=== PATIENT | male | born 1955 | race Caucasian/White ===

== ENCOUNTER 2018-11-26 05:34 | Inpatient (IN) | payer OTHER ==
[~2018-11-26] VITALS: Ht 182.9 cm; Wt 104.7 kg
[2018-11-26 05:35] VITALS: BP 194/92
[2018-11-26] MEDS ORDERED: NOHOMEMEDICATIONS (05:42)
[2018-11-26 05:54] LABS: ABSOLUTE NEUTROPHILS 11.4 thou/uL (1.4-8.2); BASOPHILS 0.8 % (0.0-2.0); EOSINOPHILS 2.1 % (0.0-3.0); HEMATOCRIT 47.1 % (42.0-52.0); HEMOGLOBIN 15.9 gm/dL (14.0-18.0); LYMPHOCYTES 8.8 % (24.0-44.0); MCH 30.1 pg (26.0-34.0); MCHC 33.7 g/dL (28.0-37.0); MCV 89.2 fL (80.0-100.0); MONOCYTES 6.1 % (1.0-8.0); PLATELET COUNT 253 thou/uL (150-400); POLYS 82.2 % (36.0-66.0); RBC 5.28 mil/uL (4.50-6.00); RDW 13.6 % (10.5-14.5); WBC 13.9 thou/uL (4.0-11.0)
[2018-11-26 05:55] LABS: BE(vivo) -1.8 mmol/L (-2 to +3); HCO3 24.2 mmol/L (22.0-26.0); PCO2 VENOUS 45.3 mmHg (41.0-51.0)
[2018-11-26 05:57] LABS: ANION GAP 11 mmol/L (7-16); BUN 17 mg/dL (7-18); CALCIUM 8.6 mg/dL (8.5-10.1); CHLORIDE 102 mmol/L (98-107); CO2 24 mmol/L (21-32); CREATININE 1.3 mg/dL (0.7-1.3); GLUCOSE 122 mg/dL (74-106); POTASSIUM 3.7 mmol/L (3.5-5.1); SODIUM 137 mmol/L (136-145)
[2018-11-26 06:07] LABS: ALBUMIN 3.5 g/dL (3.4-5.0); SGOT 19 U/L (15-37); SGPT 33 U/L (30-65); TOTAL BILIRUBIN 0.7 mg/dL (<0.1-1.0); TOTAL PROTEIN 7.4 g/dL (6.4-8.2); TROPONIN-I <0.06 ng/mL (<0.06)
[2018-11-26 07:38] VITALS: BP 158/75
--- NOTE | 2018-11-26 07:47 | EKG ---
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 : 1955 Requested By: Sonal Rubin Order Number: [id number] MD: Ellis Camacho Measurements Intervals [place] Rate: 115 P: 73 [place]: 147 QRS: 53 QRSD: 84 T: 45 QT: 333 QTc: 461 Interpretive Statements Sinus tachycardia Nonspecific ST segment abnormality Compared to ECG 08/19/1993 19:30:[address] segment abnormality is now present Electronically Signed On 11-26-2018 7:47:23 IMAGING ADMINISTRATOR by Ellis Camacho [email or web address] <ELECTRONICALLY SIGNED> By: Ellis Camacho MD, [facility] 11/26/18 0747 0556 0556 Ellis Camacho MD, [facility] /EPI
[2018-11-26 08:01] VITALS: BP 154/67
[2018-11-26 08:28] VITALS: BP 169/94
[2018-11-26 09:38] LABS: BE(vivo) -2.3 mmol/L (-2 to +3); HCO3 22.2 mmol/L (22.0-26.0); PCO2 37.5 mmHg (35.0-45.0); PO2 66.3 mmHg (80.0-100.0); sO2 93.1 % (92.0-98.0)
[2018-11-26 19:45] VITALS: BP 166/66
[2018-11-26 21:30] VITALS: BP 166/66
[2018-11-27 04:24] LABS: HEMOGLOBIN 15.1 gm/dL (14.0-18.0); LYMPHOCYTES 3.5 % (24.0-44.0); MCH 29.3 pg (26.0-34.0); MCHC 32.1 g/dL (28.0-37.0); MCV 91.3 fL (80.0-100.0); MONOCYTES 3.2 % (1.0-8.0); PLATELET COUNT 244 thou/uL (150-400); POLYS 93.3 % (36.0-66.0); RBC 5.15 mil/uL (4.50-6.00); RDW 13.7 % (10.5-14.5)
[2018-11-27 04:37] LABS: CALCIUM 8.8 mg/dL (8.5-10.1); CREATININE 1.5 mg/dL (0.7-1.3); MAGNESIUM 1.6 mg/dL (1.8-2.4); POTASSIUM 4.1 mmol/L (3.5-5.1); TROPONIN-I 0.14 ng/mL (<0.06)
[2018-11-27 04:45] VITALS: BP 133/58
--- NOTE | 2018-11-27 06:37 | NUR ---
PT RESTING ON AND OFF IN ROOM, ASKED FOR NICOTINE PATCH AND THEN REFUSED STATING IT GIVES HIM A RASH, VSS, SR IN THE 80'S, NO C/O PAIN, WILL CON'T TO MONITOR PER PPOC.
[2018-11-27 08:22] VITALS: BP 144/68
--- NOTE | 2018-11-27 10:09 | 2DMMODE ---
[facility] [place] [address] 2 D/M-MODE ECHOCARDIOGRAM Name: GRACIE ESTES Room #: 207-P ADM IN M.R.#: [id number] Admission: 11/26/18 Attend Phys: Mathieu Mcfadden MD Discharge: Date of : 55 Date of Service: 11/27/18 1008 Report #: [id number] THIS REPORT FOR: //name// APPROVED REPORT Study performed: 11/27/2018 09:16:49 EXAM: Comprehensive 2D, Doppler, and color-flow Echocardiogram Patient Location: Bedside Room #: 207 Status: routine BSA: 2.22 HR: 93 bpm BP: 133/58 mmHg Rhythm: NSR Other Information Study Quality: Technically Difficult Technically limited study due to body habitus, lung disease. Indications COPD Dyspnea Hypertension/HDD 2D Dimensions IVC: 16.00 mm Aortic Valve AoV Peak Yrn.: 1.14 m/s AO Peak Gr.: 5.17 mmHg LVOT Max P.91 mmHg LVOT Max V: 1.11 m/s Mitral Valve E/A Ratio: 0.8 MV Decel. Time: 327.68 ms MV E Max Yrn.: 1.20 m/s MV A Yrn.: 1.42 m/s MV PHT: 95.03 ms IVRT: 117.65 ms Pulmonary Valve PV Peak Yrn.: 0.92 m/s PV Peak Gr.: 3.40 mmHg [facility] [address] [place] [address] 2 D/M-MODE ECHOCARDIOGRAM Name: GRACIE ESTES Room #: 207-P ADM IN M.R.#: [id number] Admission: 11/26/18 Attend Phys: Mathieu Mcfadden MD Discharge: Date of : 55 Date of Service: 11/27/18 1008 Report #: [id number] Left Ventricle The left ventricle is normal size. There is normal LV segmental wall motion. Mild concentric left ventricular hypertrophy. The left ventricular systolic function is normal. The left ventricular ejection fraction is within the normal range. LVEF is 55-60%. Grade I - abnormal relaxation pattern. Right Ventricle The right ventricle is normal size. Right ventricular systolic function is grossly normal. Atria The left atrium size is normal. The right atrium size is normal. Aortic Valve The aortic valve is not well visualized. No aortic regurgitation is present. There is no aortic valvular stenosis. Mitral Valve The mitral valve is normal in structure. There is no mitral valve regurgitation noted. No evidence of mitral valve stenosis. Tricuspid Valve Tricuspid valve is not well visualized. There is no tricuspid valve regurgitation noted. Pulmonic Valve Pulmonic valve is not well visualized. There is no pulmonic valvular regurgitation. Great Vessels The aortic root is normal in size. IVC is normal in size and collapses >50% with inspiration. Pericardium There is no pericardial effusion. <Conclusion> The left ventricular systolic function is normal. Mild concentric left ventricular hypertrophy. There is normal LV segmental wall motion. LVEF is 55-60%. Mild diastolic dysfunction The aortic valve is not well visualized. No aortic valvular stenosis. The mitral valve is normal in structure. No mitral valve [facility] [address] [place] [address] 2 D/M-MODE ECHOCARDIOGRAM Name: GRACIE ESTES Room #: 207-P ADM IN .R.#: [id number] Admission: 11/26/18 Attend Phys: Mathieu Mcfadden MD Discharge: Date of : 55 Date of Service: 11/27/181007 Report #: [id number] regurgitation Pulmonary artery pressure could not be reliably ascertained There is no pericardial effusion. <ELECTRONICALLY SIGNED> By: Ellis Camacho MD, FACC 11/27/181007 07 07 Ellis Camacho MD, FACC /INF
[2018-11-27 12:02] VITALS: BP 176/101
--- NOTE | 2018-11-27 13:58 | EKG ---
[address] [place] [address] ELECTROCARDIOGRAM REPORT Name: GRACIE ESTES Room #: 207-P ADM IN M.R.#: [id number] Admission: 11/26/18 Attend Phys: Mathieu Mcfadden MD Discharge: Date of : 55 Report #: [id number] THIS REPORT FOR: //name// [facility] Test Date: 2018-11-27 Test Time: 10:14:11 Pat Name: GRACIE ESETS Department: Room: 207 P Gender: M Tectonophysicist: Miquel REIS : 1955 Requested By: Dee Gomez Order Number: [id number] MD: Luan Murphy Measurements Intervals [place] Rate: 79 P: 73 FL: 144 QRS: 67 QRSD: 73 T: 147 QT: 355 QTc: 407 Interpretive Statements Sinus rhythm Consider right atrial enlargement Abnormal R-wave progression, early transition Nonspecific T abnormalities, lateral leads Compared to ECG 11/26/2018 05:56:12 T-wave abnormality now present Sinus tachycardia no longer present ST (T wave) deviation no longer present Electronically Signed On 11-27-2018 13:58:02 HEALTH INFORMATION MANAGERS by Luan Murphy [email or web address] <ELECTRONICALLY SIGNED> By: Luan Murphy MD 11/27/18 1358 1014 1014 Luan Murphy MD /EPI
[2018-11-27 15:28] VITALS: BP 153/73
[2018-11-27 19:11] LABS: URINE BILIRUBIN NEGATIVE (Negative); URINE BLOOD NEGATIVE (Negative); URINE CLARITY CLEAR; URINE COLOR YELLOW; URINE GLUCOSE-RANDOM* NEGATIVE (Negative); URINE KETONES NEGATIVE (Negative); URINE LEUKOCYTES-REFLEX NEGATIVE (Negative); URINE NITRITE-REFLEX NEGATIVE (Negative); URINE PROTEIN (DIPSTICK) NEGATIVE (Negative); URINE SPECIFIC GRAVITY 1.025 (1.005-1.035); URINE UROBILINOGEN 0.2 E.U./dl (0.2-1.0)
[2018-11-27 20:15] VITALS: BP 156/61
[2018-11-28 00:50] VITALS: BP 158/78
[2018-11-28 04:14] LABS: ALBUMIN 2.8 g/dL (3.4-5.0); ANION GAP 13 mmol/L (7-16); BUN 21 mg/dL (7-18); CALCIUM 8.7 mg/dL (8.5-10.1); CHLORIDE 107 mmol/L (98-107); CHOLESTEROL 184 mg/dL (<200); CO2 23 mmol/L (21-32); CREATININE 1.2 mg/dL (0.7-1.3); GLUCOSE 131 mg/dL (74-106); HDL CHOLESTEROL 60 mg/dL (>40); LDL CHOLESTEROL 111 mg/dL (<100); PHOSPHORUS 3.2 mg/dL (2.5-4.9); POTASSIUM 4.3 mmol/L (3.5-5.1); SODIUM 143 mmol/L (136-145); TC:HDL 3.1 Ratio (Not establshd); TRIGLYCERIDE 67 mg/dL (<150); TROPONIN-I 0.07 ng/mL (<0.06); VLDL 13 mg/dL (<40)
[2018-11-28 04:15] LABS: SERUM ASSESSMENT Clear
[2018-11-28 04:45] VITALS: BP 156/66
--- NOTE | 2018-11-28 05:49 | NUR ---
ASSUME CARE 1900. PT/VITALS STABLE. INTERMITTENT HEADACHE NOTED. UP AD TRUMAN. ASSESSMET CHARTED. PROGRESSING WELL WITH POC. PLAN IS NPO FROM MIDNIGHT FOR STRESS TEST TODAY. WILL CONTINUE TO MONITOR AND FOLLOW WITH POC
[2018-11-28 08:34] VITALS: BP 186/73
--- NOTE | 2018-11-28 15:57 | NUR ---
ASSESSMENT CHARTED - MEDS PER JAN - NO CO'S OF NAUSEA RUBA DIET AND FLUIDS. GIVEN TYLENOL FOR CO'S OF HEADACHE WITH RELIEF. PT HAD NUC STRESS TEST COMPLETED THIS AM - UP AD TRUMAN IN ROOM TO THE BATHROOM. PT HAS BEEN RESTING MOST OF THE NOHEMY- ANYTIME IN ROOM PATIENT IS WANTING STAFF TO LEAVE SO THAT HE CAN SLEEP. DOES NOT LIKE TO HAVE HIS SLEEP INTERUPTED - SEEN BY DR BLOOM THIS AFTERNOON. IV FLUIDS D/C'D ORDERED. LOSARTAN STARTED ORDERED. NO CO'S AT THE PRESENT TIME.
[2018-11-28 17:03] VITALS: BP 179/74
[2018-11-28 21:21] VITALS: BP 162/86
[2018-11-28 23:51] VITALS: BP 146/72
[2018-11-29 04:27] VITALS: BP 158/86
--- NOTE | 2018-11-29 04:32 | NUR ---
ASSUMED OT CARE AT 1900. PT WAS VERY AGITATED AT THE START OF SHIFT BECAUSE HE COULD NOT GET A CAN OF COLA DUE TO HIS DIETARY RESTRICTIONS (HEART HEALTHY DIET). HE WAS YELLING AT ALL THE STAFF MEMBERS THAT TRIED TO TALK TO HIM. PT FINALLY CALMED DOWN AFTER HE WAS GIVEN A CAN OF PYRAMID [place] SODA. HIS BP WAS ELEVATED; 179/91 AT THE BEGINING OF THE SHIFT, PRN HYDRALIZINE WAS GIVEN AND IT BEGAN TRENDING DOWN. SYSTOLIC BP THIS AM WAS IN THE 150s. PT REQUESTED FOR A SLEEPING AID, 10MG MELATONIN WAS ORDERED AND ADMINISTERED. HE ALSO COMPLAINED OF SOME HEADACHE TO WHICH TYLENOL WAS EFFECTIVE IN ITS RESOLUTION. PT AND HIS MENTIONED THAT HE HAS HX OF SEIZURES AND ANXIETY/DEPRESSION. THEY FURTHER STATED THAT THE SEIZURE OFTEN "STARTS WITH A COUGH AND HIS WHOLE BODY GETS TENSE AND HE STARTS TO TREMOR." PT STATED HE HAD A SEIZURE EPISODE EARLIER IN THE DAY. DB LEPE NOTIFIED AND SEIZURE PRECAUTIONS WERE ORDERED AND IMPLEMENTED TONIGHT. PT WAS STARTED ON 500MG OF KEPRA PER DB LEPE'S ORDERS. PT STATED THAT HE USES KEPRA FOR HIS SEIZURES BUT HE HADN'T USED THIS MEDICINE IN OVER ONE YEAR. ALSO, HYDROXYZINE 25MG PRN WAS ORDERED FOR ANXIETY. I OBSERVED THAT HE GETS SOA WHEN HE SEEMS ANXIOUS. I PUT PT ON 2L O2 NC FOR COMFORT PRN. PT ALSO STATED THAT THE LAST TIME HE SAW HIS DR. SHE TOLD HIM THAT HE SHOULD STOP TAKING ATORVASTATIN AND SHOULD START SIMVASTATIN INSTEAD. OTHERWISE, PT HAS BEEN STABLE WITH NO MORE ANGER OUTBURSTS. HE RESTED WELL OVER NIGHT, WILL CONTINUE TO MONITOR PER POC.
[2018-11-29 08:00] VITALS: BP 180/76
[2018-11-29] MEDS ORDERED: CEFUROXIME500 MG PO (09:44)
[2018-11-29] MEDS ORDERED: KEPPRA 500 MG500 M1 PO (09:45)
[2018-11-29] MEDS ORDERED: ASPIR 8181 MG PO (09:45)
[2018-11-29] MEDS ORDERED: COZAAR100 MG PO (09:45)
[2018-11-29] MEDS ORDERED: IPRAT-ALBUT 0.5-3 ML INH (09:45)
[2018-11-29] MEDS ORDERED: METOPROLOL SUCC50 MG PO (09:45)
[2018-11-29] MEDS ORDERED: PREDNISONE 20 M20 MG PO (09:47)
[2018-11-29] MEDS ORDERED: ATORVASTATIN CA40 MG PO (09:50)
[2018-11-29 10:09] VITALS: BP 180/76
[2018-11-29 11:48] VITALS: BP 180/76
--- NOTE | 2018-11-29 11:50 | NUR ---
Pt dcing home today. No insurance and [facility]. Pt provided the saftey net packet, scripts for 30 days vouchered for a total of $94.52 and a nebulizer was vouchered and issued per provider plus. Pt encouraged to make an appointment with the [facility] as soon as possible or with one of the community clinics for followup care. Nursing updated. No other needs noted.
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
== END 2018-11-29 12:10 | disposition home or self-care (01) | DRG 871 ==
LOC: ER 05:34 → EROBS 07:09 → 2N 07:09
PROVIDERS: Emergency Medicine; Hospitalist; Student in an Organized Health Care Education/Training Program; ADMIT Internal Medicine
DX: A41.9 Sepsis, unspecified organism (principal); J96.01 Acute respiratory failure with hypoxia; J18.9 Pneumonia, unspecified organism; J44.1 Chronic obstructive pulmonary disease with (acute) exacerbation; N17.9 Acute kidney failure, unspecified; J44.0 Chronic obstructive pulmonary disease with (acute) lower respiratory infection; I16.0 Hypertensive urgency; I10 Essential (primary) hypertension; R00.0 Tachycardia, unspecified; T69.9XXA Effect of reduced temperature, unspecified, initial encounter; G40.909 Epilepsy, unspecified, not intractable, without status epilepticus; E78.5 Hyperlipidemia, unspecified; I65.29 Occlusion and stenosis of unspecified carotid artery; F17.210 Nicotine dependence, cigarettes, uncomplicated; F12.90 Cannabis use, unspecified, uncomplicated; Z71.6 Tobacco abuse counseling; Z79.82 Long term (current) use of aspirin; Z79.899 Other long term (current) drug therapy; Z91.14 Patient's other noncompliance with medication regimen
CPT/HCPCS: 10081

== ENCOUNTER 2019-04-14 16:52 | Inpatient (IN) | payer OTHER ==
[~2019-04-14] VITALS: Ht 180.3 cm; Wt 101.5 kg
[~2019-04-14 16:52] MED LIST: ASPIR 8181 MG PO; ATORVASTATIN CA40 MG PO; CEFUROXIME500 MG PO; COZAAR100 MG PO; IPRAT-ALBUT 0.5-3 ML INH; KEPPRA 500 MG500 M1 PO; METOPROLOL SUCC50 MG PO; NOHOMEMEDICATIONS; PREDNISONE 20 M20 MG PO
[2019-04-14 16:54] VITALS: BP 182/83
[2019-04-14 17:28] LABS: ABSOLUTE NEUTROPHILS 14.3 thou/uL (1.4-8.2); BASOPHILS 0.4 % (0.0-2.0); EOSINOPHILS 0.3 % (0.0-3.0); HEMATOCRIT 43.5 % (42.0-52.0); HEMOGLOBIN 14.7 gm/dL (14.0-18.0); LYMPHOCYTES 6.5 % (24.0-44.0); MCH 29.8 pg (26.0-34.0); MCHC 33.9 g/dL (28.0-37.0); MCV 87.9 fL (80.0-100.0); MONOCYTES 8.4 % (1.0-8.0); PLATELET COUNT 223 thou/uL (150-400); POLYS 84.4 % (36.0-66.0); RBC 4.95 mil/uL (4.50-6.00); RDW 13.2 % (10.5-14.5)
[2019-04-14 17:38] LABS: ANION GAP 10 mmol/L (7-16); BUN 15 mg/dL (7-18); CALCIUM 8.9 mg/dL (8.5-10.1); CHLORIDE 99 mmol/L (98-107); CO2 27 mmol/L (21-32); CREATININE 1.4 mg/dL (0.7-1.3); GLUCOSE 99 mg/dL (74-106); SODIUM 136 mmol/L (136-145)
[2019-04-14 17:52] LABS: MAGNESIUM 1.5 mg/dL (1.8-2.4); SGOT 16 U/L (15-37); SGPT 20 U/L (30-65); TOTAL BILIRUBIN 0.8 mg/dL (<0.1-1.0); TOTAL PROTEIN 7.1 g/dL (6.4-8.2); TROPONIN-I <0.06 ng/mL (<0.06)
[2019-04-14 21:27] LABS: URINE BILIRUBIN NEGATIVE (Negative); URINE BLOOD NEGATIVE (Negative); URINE CLARITY CLEAR; URINE COLOR YELLOW; URINE GLUCOSE-RANDOM* NEGATIVE (Negative); URINE KETONES NEGATIVE (Negative); URINE LEUKOCYTES-REFLEX NEGATIVE (Negative); URINE NITRITE-REFLEX NEGATIVE (Negative); URINE PROTEIN (DIPSTICK) TRACE (Negative); URINE SPECIFIC GRAVITY <= 1.005 (1.005-1.035)
[2019-04-14 21:30] VITALS: BP 163/112
[2019-04-14 22:20] VITALS: BP 124/66
[2019-04-14] MEDS ORDERED: ZOCOR20 MG PO (23:13)
[2019-04-14 23:52] VITALS: BP 141/72
[2019-04-15 04:00] VITALS: BP 144/66
--- NOTE | 2019-04-15 06:28 | NUR ---
PT ARRIVED FROM ER VIA CART, PLACED IN ROOM 363. ADMISSION ASSESSMENTS COMPLETED. SEE CHARTING. PT MAKING PROGRESS TOWARDS GOALS. TYLENOL, MORPHINE AND (GENERIC) EXCEDRIN GIVEN FOR HEADACHE. MODERATE RELIEF NOTED WITH MORPHINE AND TYLENOL. PT ASLEEP SHORTLY AFTER GIVING EXCEDRIN. LUNGS DIMINISHED, FAINTLY COARSE MIKE. REPORTS COUGH NON-PRODUCTIVE "I JUST SWALLOW IT."
[2019-04-15 06:56] LABS: HEMATOCRIT 38.5 % (42.0-52.0); HEMOGLOBIN 12.9 gm/dL (14.0-18.0); MCH 29.7 pg (26.0-34.0); MCHC 33.5 g/dL (28.0-37.0); MCV 88.6 fL (80.0-100.0); RBC 4.34 mil/uL (4.50-6.00); RDW 13.1 % (10.5-14.5); WBC 13.3 thou/uL (4.0-11.0)
[2019-04-15 07:04] LABS: CALCIUM 8.4 mg/dL (8.5-10.1); CREATININE 1.4 mg/dL (0.7-1.3); MAGNESIUM 2.1 mg/dL (1.8-2.4); POTASSIUM 3.4 mmol/L (3.5-5.1)
[2019-04-15 07:30] VITALS: BP 133/49
--- NOTE | 2019-04-15 08:47 | EKG ---
[address] [address] ELECTROCARDIOGRAM REPORT Name: GRACIE ESTES Room #: 363-P ADM IN M.R.#: [id number] ������������������ Admission: 04/14/19 ������������������ Attend Phys: Tung Haile MD Discharge: ������������������ Date of : 55 Report #: [id number] ����������������������������������������������������������������� [id number] THIS REPORT FOR: //name// [facility] ED Test Date: 2019-04-14 Test Time: 17:58:49 Pat Name: GRACIE ESTES Department: Room: 363 Gender: M Propagation Worker: hina : 1955 Requested By: Mars Madrid Order Number: [id number] MD: Luan Murphy Measurements Intervals [place] Rate: 120 P: 75 [place]: 147 QRS: 48 QRSD: 80 T: 67 QT: 315 QTc: 445 Interpretive Statements Sinus tachycardia Consider right atrial enlargement Compared to ECG 11/27/2018 10:14:11 Sinus rhythm no longer present T-wave abnormality no longer present Electronically Signed On 04-15-2019 8:47:38 CDT by Luan Murphy [email or web address] ��������������������������������������������� <ELECTRONICALLY SIGNED> ���������������������������������������� By: Luan Murphy MD ��������������������������������������������� 04/15/19 0847 1758 1758 Luan Murphy MD /[facility]
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
--- NOTE | 2019-04-15 13:38 | NUR ---
Assess due to pt with recent poor oral intake x 5 days. Admit with pneumonia. Pt states wasn't eating because not feeling well, but appetite is good now. Ate 100% of lunch. Stated wt may be down few pounds from usual of 220 lb. Low nutrition risk
[2019-04-15 20:24] VITALS: BP 131/53
[2019-04-16 00:47] VITALS: BP 156/63
--- NOTE | 2019-04-16 02:15 | NUR ---
At approx 0030 pt had call light on ,nurse was on the way to pt's room with sleep aid. Pt reported he had a coughing spell which triggered a seizure spell,not observed by jingle writer. Pt alert and oriented and not coughing at the particular moment only complained of pain allover moreso headache medicated with Morphine and verbalized relief. VS 156/63,98% RA,20,91,98.1. arrived to pt's room and explained that normally if he has a bad coughing spell he holds on his breathe and most likely can get a seizure if not able to breath. Melatonin administered at that time, on reassment pt resting soundly with no distress noted. at the bedside for the night. Seiuzure precautions in place,call light placed within reach. Will continue to monitor pt.
[2019-04-16 05:28] LABS: HEMATOCRIT 39.1 % (42.0-52.0); HEMOGLOBIN 12.9 gm/dL (14.0-18.0); MCH 29.5 pg (26.0-34.0); MCV 89.4 fL (80.0-100.0); RBC 4.38 mil/uL (4.50-6.00); RDW 13.4 % (10.5-14.5); WBC 8.1 thou/uL (4.0-11.0)
[2019-04-16 05:30] VITALS: BP 179/95
[2019-04-16 05:47] LABS: CALCIUM 8.2 mg/dL (8.5-10.1); CREATININE 1.2 mg/dL (0.7-1.3); POTASSIUM 3.6 mmol/L (3.5-5.1)
--- NOTE | 2019-04-16 05:47 | NUR ---
PT. called @0530 STATED HAD A BAD DREAM AND NEEDS A PSYC EVAL IN THE MORNING AND DECLINES HAVING A FEMALE PSYC DR. MOYA ASSESSED AND DOCUMENTED WILL CONTINUE TO MONITOR.
[2019-04-16 07:59] VITALS: BP 175/83
--- NOTE | 2019-04-16 15:49 | NUR ---
SW reviewed chart and spoke with nursing and attending physician. Psych consult ordered today per pt's request. Plan is for pt to discharge home when medically stable. Pt does not have active insurance coverage, as [facility]. LEVI is following to assist as needed with discharge planning.
[2019-04-16 16:09] VITALS: BP 145/61
--- NOTE | 2019-04-16 16:47 | NUR ---
ASSESSMENT DOCUMENTED. PT ALERT AND ORIENTED. HAD X1 EPISODE OF SEIZURE THAT LASTED FOR A MINUTE. DR. HAMMOND AWARE. NEW ORDERS RECEIVED. PRN NAUSEA AND PAIN MED GIVEN. AT THE BEDSIDE. WILL CONTINUE TO MONITOR.
[2019-04-16 19:59] VITALS: BP 155/86
--- NOTE | 2019-04-17 03:26 | NUR ---
SLEPT MOST OF SHIFT. UP WITH STANDBY ASSIST DUE TO SEIZURES YESTERDAY. GAIT STEADY. AT BEDSIDE. MAINTAIN SAFE ENVIRONMENT. WORKING ON GOALS AND PLAN OF CARE FOR NOC. PLANS FOR EEG AND MRI IN AM. PROGRESSING SLOWLY TOWARDS DISCHARGE GOALS. CONTINUE TO ASSES.
[2019-04-17 04:15] VITALS: BP 154/77
--- NOTE | 2019-04-17 07:41 | NUR ---
0550 PATIENT BECAME VERY ANGRY THIS AM AND SAID HE IS DROWNING IN HIS OWN FLUIDS. LUNG SOUNDS DECREASED AND COURSE IN BASES. O2 SAT 96% ON RA. UP PACING IN ROOM CUSSING AND YELLING. STATING WE DO NOT KNOW HOW HE FEELS. STATES HE HASNT SLEPT ALL NOC BUT RESTED WITH EYES CLOESED AND DID NOT COMPLAIN UNTIL THIS AM. STAYED WITH PATIENT WHY HE ANGERLY RANTED AND CUSSED FOR 40 MIN. CALMED DOWN NOW AND SLEEPING. REMAINS AT BEDSIDE AND WAS APOLOGETIC PAST PATIENTS RANT. CONTINUE TO ASSES CLOESLY. RT DID AM BREATHING TREATMENT.
[2019-04-17 08:13] VITALS: BP 132/68
[2019-04-17 08:15] LABS: HEMOGLOBIN 11.7 gm/dL (14.0-18.0); MCH 29.7 pg (26.0-34.0); MCHC 33.5 g/dL (28.0-37.0); MCV 88.6 fL (80.0-100.0); RBC 3.95 mil/uL (4.50-6.00); RDW 13.2 % (10.5-14.5); WBC 7.8 thou/uL (4.0-11.0)
[2019-04-17 08:28] LABS: ALBUMIN 2.4 g/dL (3.4-5.0); CALCIUM 8.1 mg/dL (8.5-10.1); CREATININE 1.3 mg/dL (0.7-1.3); MAGNESIUM 1.6 mg/dL (1.8-2.4); POTASSIUM 3.4 mmol/L (3.5-5.1); TOTAL BILIRUBIN 0.2 mg/dL (<0.1-1.0); TOTAL PROTEIN 5.8 g/dL (6.4-8.2)
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
[2019-04-17 19:20] VITALS: BP 168/73
--- NOTE | 2019-04-17 21:15 | NUR ---
1999 PATIENT UP PACING IN ROOM. STATES WE ARE TRYING TO KILL HIM. YELLING AND CUSSING. STATES THE BREATHING TREATMENTS DONT WORK. INFORMED NURSE WILL CALL DR FOR CHANGE IN MEDICATIONS. [address] RING NOTIFIED AND MEDICATIONS CHANGED TO MATCH PATIENTS REQUEST. NOW HERE. PATIENT STILL AGITATED AND ANGRY.
--- NOTE | 2019-04-17 21:31 | NUR ---
PATIENT ALERT AND ORIENTED AND ANGRY AT STAFF AND SPOUSE. SPOUSE AT BEDSIDE THROUGHOUT DAY AND IS A NURSE. ATTEMPTS TO EXPLAIN PLAN OF CARE ARE RESISTED BY PATIENT AND WILL CURSE AND DEGRADE THE STAFF AND DOCTORS INDICATING NO ONE IS LISTENING TO HIS CONCERNS. CONCERNS ARE EXPRESS TO CHARGE NURSE, ANCILLARY STAFF, CASE MANAGMENT AND PHYSICIAN. WILL CONTINUE TO MONITOR.
[2019-04-18 04:50] VITALS: BP 161/72
--- NOTE | 2019-04-18 05:21 | NUR ---
PATIENT RESTED QUIETLY REST OF SHIFT. PATIENT REMAINS ANXIOUS AND MEDICATION GIVEN. WORKING ON GOALS AND PLAN OF CARE FOR NOC. UP IN CHIU WITH STEADY GAIT. CALLED RT FOR TREATMENT BUT PATIENT ASLEEP WHEN RT ARRIVED. WILL CALL AGIAN IF PATIEN AWAKENS. CONTINUE TO ASSES CLOSELY.
[2019-04-18 06:18] LABS: HEMATOCRIT 37.2 % (42.0-52.0); HEMOGLOBIN 12.5 gm/dL (14.0-18.0); MCH 29.8 pg (26.0-34.0); MCHC 33.6 g/dL (28.0-37.0); MCV 88.8 fL (80.0-100.0); RBC 4.18 mil/uL (4.50-6.00); RDW 13.5 % (10.5-14.5); WBC 8.6 thou/uL (4.0-11.0)
[2019-04-18 06:28] LABS: CALCIUM 8.6 mg/dL (8.5-10.1); CREATININE 1.2 mg/dL (0.7-1.3); POTASSIUM 3.7 mmol/L (3.5-5.1)
[2019-04-18 08:41] LABS: TSH 2.577 uIU/mL (0.358-3.740)
[2019-04-18 08:50] VITALS: BP 165/69
--- NOTE | 2019-04-18 15:57 | NUR ---
SW reviewed chart and spoke with nursing and attending physician. Pulmonary consulted today. Pt is on IV steroids. SW is following to assist as needed with discharge planning.
--- NOTE | 2019-04-18 17:51 | NUR ---
Assumed pt care this am, pt is verbally abusive and very angry. Pt claimed to not being able to sleep due to his not being able to breath. Pt had mentioned that his health has declined more the longer he stays in the hispital. Pt would refuse getting medication on time, refuse assessments and treatments. Dr. Haile informed, medication was added consult with production controller done. POC followed, pt was asleep from most fo the afternoon. Refused to have a bed alarm on, will not call for assistance. is fully aware of the risk and rationale why nurses need to do this. requested that he be left alone since pt is very aggitated and hateful and would be the same towards her. All morning medications were given late. POC followed permitted.
[2019-04-18 19:32] VITALS: BP 177/90
--- NOTE | 2019-04-19 02:25 | NUR ---
resting quietly tonight. denies pain, he explained that he needs his medications to prevent him from acting unpleasant. to was able to ask appropriate questions and explain what he wants and needs to cooperate with care tonight. he took all of his medications. stated that he does feel better with the steriods that have been started.
[2019-04-19 03:08] VITALS: BP 139/73
--- NOTE | 2019-04-19 14:58 | NUR ---
SW reviewed chart and spoke with nursing and attending physician. Pt is slowly progressing towards goals for discharge. Pt remains on IV steroids. SW met with pt at bedside. Pt states he is hoping to discharge home over the weekend. SW asked if pt/ had any questions regarding info provided for behavioral health resources for their sons. Pt states they do not have any questions at this time. SW provided contact info. [employer] event representative to meet with pt this afternoon regarding Medicaid application/financial assistance. SW is following to assist as needed with discharge planning.
[2019-04-19 15:40] VITALS: BP 144/76
[2019-04-19 20:10] VITALS: BP 168/91
[2019-04-19 23:09] LABS: ADENOVIRUS Negative (Negative); INFLUENZA A Negative (Negative); INFLUENZA B Negative (Negative); METAPNEUMOVIRUS Negative (Negative); PARAINFLUENZA 1 Negative (Negative); PARAINFLUENZA 2 Negative (Negative); PARAINFLUENZA 3 Positive (Negative); RHINOVIRUS Negative (Negative); RSV A Negative (Negative); RSV B Negative (Negative)
--- NOTE | 2019-04-20 00:02 | NUR ---
NOTIFIED PROVIDER OF PARAINFLUENZA POSITIVE RESULT. NO FURTHER ORDERS AT THIS TIME.
--- NOTE | 2019-04-20 03:53 | NUR ---
cooperative with medications this shift. he has needed some redirecting when he gets stressed. his is staying at the bedside. his stated that he hydroxizine is helpful in controlling his anxiety. resting quietly tonight. he stated that he has been getting some rest this past two days. careplan reviewed.
[2019-04-20 04:45] VITALS: BP 181/101
[2019-04-20 06:00] VITALS: BP 160/98
[2019-04-20 10:20] VITALS: BP 159/79
[2019-04-20 12:00] VITALS: BP 158/86
[2019-04-20] MEDS ORDERED: IPRAT-ALBUT 0.5-3 ML INH (12:36)
[2019-04-20] MEDS ORDERED: PRAZOSIN HCL1 MG PO (12:36)
[2019-04-20] MEDS ORDERED: VISTARIL 25 MG25 M1 PO (12:37)
[2019-04-20] MEDS ORDERED: MUCINEX600 MG PO (12:37)
[2019-04-20] MEDS ORDERED: VENTOLIN HFA 1818 GM INH (12:38)
[2019-04-20] MEDS ORDERED: PREDNISONE 10 M10 MG PO (12:38)
[2019-04-20] MEDS ORDERED: CEFUROXIME500 MG PO (12:38)
--- NOTE | 2019-04-20 14:53 | NUR ---
ASSUMED CARE OF PT AT APPROX 0700. PT IS ALERT AND ORIENTED X4, MONITORED ON TELE AND ABLE TO MAINTAINS 02 SAT >90 ON RA. PT RESQUEST TO BE LEFT ALONE FOR NOW AND TO WAIT UNTIL LATER IN THE AM FOR MEDICATIONS AND VITALS. PT WAS COOPERATIVE WHEN ENTERED ROOM FOR MEDICATIONS AND VITALS. DENIES PAIN. ASSESSMENT CHARTED. RECEIEVED ORDER FOR DC OF PT. PT STATES HE FEELS LIKE ONE MORE DAY COULD BE BENEFICIAL TO HIM. CONTACTED DR AND DR AGREES TO ONE MORE DAY. PT ALSO REQUESTS TO BE ABLE TO WALK OUTSIDE SUPERVISED JUST FOR SOME FRESH AIR. DR IS OK LONG SUPERVISED. PT HAS BEEN UPDATED ON POC AND IS AGREEABLE. WILL CONTINUE TO MONITOR.
[2019-04-20 16:00] VITALS: BP 147/62
[2019-04-20 20:00] VITALS: BP 154/71
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
--- NOTE | 2019-04-20 22:27 | EEG ---
[facility] [place] [address] ELECTROENCEPHALOGRAM Name: GRACIE ESTES Room #: 363-P [facility] IN M.R.#: [id number] ������������������ Admission: 04/14/19 ������������������ Attend Phys: Tung Haile MD Discharge: ������������������ Date of : 55 Report #: [id number] ����������������������������������������������������������������� [id number] THIS REPORT FOR: //name// CC: FAM unknown Tung Haile DATE OF SERVICE: 04/17/2019 This patient is being evaluated for the possibility of seizure. EEG was done by placing the electrode by standard 10-20 system of electrode placement. Both referential and sequential montages were used for recording. Background activity in this patient's EEG is about 9-10 Hz and 30 microvolt. The patient became drowsy and that was associated with bilateral slowing and vertex sharp waves. Photic stimulation was unremarkable. Throughout the record, no active epileptiform activity was noticed. IMPRESSION: This patient's EEG is unremarkable. ���������������������������������������� <ELECTRONICALLY SIGNED> ���������������������������������������� By: Rikki Catherine MD ��������������������������������������������� 04/20/19 2227 21 [id number] Rikki Catherine MD /nt
--- NOTE | 2019-04-21 04:40 | NUR ---
ASSUMED CARE OF PT AT 1900. A&Ox4, VS STABLE, SLIGHTLY TACHY ON TELE, HR 100-110. STATED HE FEELS HE IS BREATHING BETTER. WAS ANXIOUS OVER NOC. REQUESTED HIS DOG COME SEE HIM. UP WALKING IN HALLWAY TO GET ICE/DRINKS. C/O PAIN IN R ARM NEAR IV SITE. IV REMOVED. WARM BLANKET PLACED ON ARM FOR COMFORT. REQUESTED TYLENOL FOR PAIN, SLEEP AND ANXIETY MEDS, PROVIDED. PT FINALLY ABLE TO SLEEP AROUND 0300. SPOKE TO NURSE, STATED THEY WOULD LIKE PRESCRIPTION FOR TEMAZEPAM FOR SLEEP WHEN DC'D TODAY BECAUSE [facility]. WILL PASS ON TO DAY RN. CURRENTLY RESTING. WILL CONTACT ENVIRONMENTAL PROJECT MANAGER FOR POSSIBLE DC OF IV WITH PLANS TO DC TODAY. PROGRESSING TOWARDS POC GOALS.
[2019-04-21 05:06] VITALS: BP 117/59
[2019-04-21 10:27] VITALS: BP 117/59
--- NOTE | 2019-04-21 10:57 | NUR ---
ASSUMED PATIENT CARE AT 0700. A/O X4. IMPUSIVE. WANTS GO HOME. CM WILL HELP HIS HOME MEDS TOMORROW. D TO HOME NOW.
--- NOTE | 2019-04-22 15:17 | NUR ---
SW notified that pt was discharged home yesterday. Pt needing scripts filled. Pt returned today to have scripts filled in [facility] outpatient pharmacy. Total $160.40. Pt also needs a nebulizer. SW contacted [facility] liaison to obtain nebulizer. LEVI discussed with Director of Case Mgmt. No additional SW needs identified. Case closed.
== END 2019-04-21 10:57 | disposition home or self-care (01) | DRG 871 ==
LOC: ER 16:52 → EROBS 18:23 → 3W 18:23
PROVIDERS: Emergency Medicine; Nurse Practitioner Acute Care; Nurse Practitioner Family; Psychiatry & Neurology Neuromuscular Medicine; ADMIT Hospitalist
DX: A41.9 Sepsis, unspecified organism (principal); J18.9 Pneumonia, unspecified organism; J44.1 Chronic obstructive pulmonary disease with (acute) exacerbation; J44.0 Chronic obstructive pulmonary disease with (acute) lower respiratory infection; G40.909 Epilepsy, unspecified, not intractable, without status epilepticus; E87.6 Hypokalemia; I65.23 Occlusion and stenosis of bilateral carotid arteries; F19.10 Other psychoactive substance abuse, uncomplicated; B34.9 Viral infection, unspecified; F43.10 Post-traumatic stress disorder, unspecified; E83.42 Hypomagnesemia; E66.9 Obesity, unspecified; E78.5 Hyperlipidemia, unspecified; F17.210 Nicotine dependence, cigarettes, uncomplicated; I10 Essential (primary) hypertension; Z91.14 Patient's other noncompliance with medication regimen; Z88.8 Allergy status to other drugs, medicaments and biological substances; Z80.9 Family history of malignant neoplasm, unspecified; Z68.31 Body mass index [BMI] 31.0-31.9, adult
CPT/HCPCS: 10779; 10879